=== PATIENT | female | born 1975 ===

== ENCOUNTER 2025-02-23 10:53 | Outpatient (CLI) | payer OTHER | END 2025-02-23 11:00 | disposition home or self-care (01) | LOC: TOM 10:53 | DX: D35.2 Benign neoplasm of pituitary gland (principal); Z12.31 Encounter for screening mammogram for malignant neoplasm of breast; I10 Essential (primary) hypertension; E11.8 Type 2 diabetes mellitus with unspecified complications; Z76.0 Encounter for issue of repeat prescription; A49.3 Mycoplasma infection, unspecified site; Z20.822 Contact with and (suspected) exposure to COVID-19; N39.0 Urinary tract infection, site not specified; J11.1 Influenza due to unidentified influenza virus with other respiratory manifestations; B34.9 Viral infection, unspecified; R05.9 Cough, unspecified; J03.90 Acute tonsillitis, unspecified; B34.2 Coronavirus infection, unspecified; Z20.828 Contact with and (suspected) exposure to other viral communicable diseases ==